=== PATIENT | female | born 1960 | race Caucasian/White ===

== ENCOUNTER → 2017-12-07 | Outpatient (CLI) | payer OTHER ==
[~2017-12-07] MED LIST: ADAL40KI INJ; CHOL200010; CYCL10TA6 PO; DCL/500 PO; DULO60CA44 PO; IBUP-1277 PO; KETO1DRO13 OPB; METHOTREXATE PO; METO-478 PO; NXM/40 PO; PILO5TAB10 PO; TYLOTC500 PO; ZOLP10TA PO; [UNRECOGNIZED DRUG - CODE] PO
== END | disposition home or self-care (01) ==
LOC: C.PAPS 12:04
PROVIDERS: ATTEND Family Medicine
DX: Z12.72 Encounter for screening for malignant neoplasm of vagina (principal)